=== PATIENT | male | born 1960 | race Caucasian/White ===

== ENCOUNTER 2022-07-17 12:23 | Outpatient (CLI) | payer OTHER | END 2022-07-17 12:24 | disposition home or self-care (01) | LOC: RAD 12:23 | PROVIDERS: ATTEND Internal Medicine | DX: Z02.71 Encounter for disability determination (principal); I51.7 Cardiomegaly | CPT/HCPCS: 71046 ==

== ENCOUNTER 2022-07-26 07:17 | Inpatient (IN) | payer SELFPAY ==
[2022-07-26 07:50] LABS: #Eosinphils 0.3 thou/uL (0.0-0.7); #Monocytes 0.4 thou/uL (0.11-0.59); #Neutrophils 4.2 thou/uL (1.40-6.50); %Basophils 0.4 % (0.0-1.0); %Eosinophils 4.7 % (0.0-10.0); %Lymphocytes 16.6 % (21.0-51.0); %Monocytes 6.9 % (0.0-10.0); %Neutrophils 71.4 % (42.0-75.0); Hemoglobin 15.9 g/dL (14.0-18.0); Mean Corpuscular HGB CONC 33.1 g/dL (32.0-36.0); Mean Corpuscular Hemoglobin 33.5 pg (27.0-31.0); Mean Platelet Volume 7.9 fL (7.4-10.4); Platelet Count 141 10x3/uL (130-400); RBC Distribution Width 12.7 % (11.5-14.5); Red Blood Cell (RBC) Count 4.75 mill/uL (4.70-6.10); White Blood Cell (WBC) Count 5.9 10x3/uL (4.8-10.8)
[2022-07-26 08:12] LABS: ALT (SGPT) 10 U/L (8-55); AST (SGOT) 18 U/L (5-34); Albumin 4.2 g/dL (3.4-4.8); Alkaline Phosphatase 83 U/L (40-110); Anion Gap 14 mmol/L (10-20); BUN (Urea Nitrogen) 15 mg/dL (8.4-25.7); Bilirubin, Total 0.8 mg/dL (0.2-1.2); Calc. Creatinine Clearance 0 mL/min (70-130); Calcium 9.2 mg/dL (7.8-10.44); Carbon Dioxide 25 mmol/L (23-31); Chloride 103 mmol/L (98-107); Estimated GFR 78; Globulin 3.9 g/dL (2.4-3.5); Glucose 107 mg/dL (80-115); Lipase 45 U/L (8-78); Potassium 4.4 mmol/L (3.5-5.1); Protein, Total 8.1 g/dL (5.8-8.1); Sodium 138 mmol/L (136-145)
[2022-07-26 08:38] LABS: CKMB 2.3 ng/mL (0-6.6)
[2022-07-26] MEDS ORDERED: Nitroglycerin 2% Ointment 1 INCH/1 GM Packet ONE (09:00)
[2022-07-26] MEDS ORDERED: Aspirin Chewable 81 MG TAB ONE (09:00)
[2022-07-26] MEDS ORDERED: Acetaminophen 325 MG TAB PO PRN (10:50)
[2022-07-26] MEDS ORDERED: Ipratropium/Albuterol 3 ML NEB NEB SCH (11:00)
[2022-07-26] MEDS ORDERED: Ipratropium/Albuterol 3 ML NEB ONE (11:18)
[2022-07-26 11:34] LABS: Magnesium 1.9 mg/dL (1.6-2.6)
[2022-07-26] MEDS ORDERED: hydrALAZINE 20 MG/ML VIAL SLOW IVP PRN (11:55)
[2022-07-26] MEDS ORDERED: Lisinopril 10 MG TAB PO SCH (12:00)
[2022-07-26] MEDS ORDERED: hydrALAZINE 20 MG/ML VIAL ONE (12:05)
[2022-07-26] MEDS ORDERED: Ondansetron PF 4 MG/2 ML Vial IVP PRN (12:30)
[2022-07-26] MEDS ORDERED: Ondansetron ODT 4 MG TAB PO PRN ×2 (12:31→14:41)
[2022-07-26 13:40] VITALS: BMI 29.0
[2022-07-26] MEDS ORDERED: Lorazepam 2 MG/ML VIAL IM PRN (14:41)
[2022-07-26] MEDS ORDERED: Lorazepam 1 MG TAB PO PRN (14:41)
[2022-07-26] MEDS ORDERED: Electrolyte Replacement Protocol 1 EACH FS SCH (14:45)
[2022-07-26 15:09] LABS: #Eosinphils 0.2 thou/uL (0.0-0.7); #Lymphocytes 1.1 thou/uL (1.20-3.40); #Monocytes 0.5 thou/uL (0.11-0.59); #Neutrophils 4.7 thou/uL (1.40-6.50); %Basophils 0.5 % (0.0-1.0); %Eosinophils 3.3 % (0.0-10.0); %Lymphocytes 16.9 % (21.0-51.0); %Monocytes 7.4 % (0.0-10.0); %Neutrophils 71.9 % (42.0-75.0); Hemoglobin 16.1 g/dL (14.0-18.0); Mean Corpuscular HGB CONC 33.8 g/dL (32.0-36.0); Mean Corpuscular Hemoglobin 34.5 pg (27.0-31.0); Mean Platelet Volume 7.3 fL (7.4-10.4); Platelet Count 143 10x3/uL (130-400); RBC Distribution Width 12.8 % (11.5-14.5); Red Blood Cell (RBC) Count 4.69 mill/uL (4.70-6.10); White Blood Cell (WBC) Count 6.5 10x3/uL (4.8-10.8)
[2022-07-26] MEDS ORDERED: Lorazepam 2 MG/ML VIAL SLOW IVP SCH (15:15)
[2022-07-26 15:33] LABS: ALT (SGPT) 12 U/L (8-55); AST (SGOT) 18 U/L (5-34); Albumin 4.2 g/dL (3.4-4.8); Alkaline Phosphatase 86 U/L (40-110); Anion Gap 13 mmol/L (10-20); BUN (Urea Nitrogen) 17 mg/dL (8.4-25.7); Bilirubin, Direct 0.2 mg/dL (0.1-0.3); Bilirubin, Total 0.7 mg/dL (0.2-1.2); Calc. Creatinine Clearance 88 mL/min (70-130); Calcium 9.7 mg/dL (7.8-10.44); Carbon Dioxide 26 mmol/L (23-31); Chloride 102 mmol/L (98-107); Estimated GFR 75; Glucose 99 mg/dL (80-115); Magnesium 1.9 mg/dL (1.6-2.6); Phosphorus 2.7 mg/dL (2.3-4.7); Potassium 4.3 mmol/L (3.5-5.1); Protein, Total 8.2 g/dL (5.8-8.1); Sodium 137 mmol/L (136-145)
[2022-07-26] MEDS ORDERED: Electrolyte Replacement Protocol FS PRN (15:45)
[2022-07-26] MEDS ORDERED: methylPREDNISolone Sod Succ 40 MG VIAL IVP SCH (16:00)
[2022-07-26] MEDS ORDERED: Losartan 25 MG TAB PO SCH (16:00)
[2022-07-26] MEDS ORDERED: Magnesium 2 GM/50 ML(in water) 2 GM in Premix Bag 1 BAG IVPB SCH (16:00)
[2022-07-26 16:57] LABS: Amphetamine Not Detected (NotDetected); Barbiturates Screen Not Detected (NotDetected); Benzodiazepine Screen Not Detected (NotDetected); Cocaine Metabolite Screen Not Detected (NotDetected); Methadone Not Detected (NotDetected); Methamphetamine Not Detected (NotDetected); Opiate Screen Not Detected (NotDetected); Oxycodone Screen Not Detected (NotDetected); Phencyclidine (PCP) Not Detected (NotDetected); THC/Cannabinoid Screen Detected (NotDetected); Tricyclic Screen Not Detected (NotDetected)
[2022-07-26] MEDS: Thiamine HCl 200 MG/2 ML VIAL SLOW IVP SCH (17:01)
[2022-07-26] MEDS: Lorazepam 1 MG TAB PO SCH ×2 (18:31→23:29)
[2022-07-26 18:53] LABS: Syphilis Antibody Nonreactive (Nonreactive); Syphilis Antibody Index 0.11 S/CO (<1.00 Non-Reactive)
[2022-07-27 05:09] LABS: #Lymphocytes 0.8 thou/uL (1.20-3.40); #Monocytes 0.3 thou/uL (0.11-0.59); #Neutrophils 4.2 thou/uL (1.40-6.50); %Basophils 0.2 % (0.0-1.0); %Eosinophils 0.1 % (0.0-10.0); %Lymphocytes 14.9 % (21.0-51.0); %Monocytes 4.9 % (0.0-10.0); Hemoglobin 15.7 g/dL (14.0-18.0); Mean Corpuscular HGB CONC 33.8 g/dL (32.0-36.0); Mean Corpuscular Hemoglobin 34.1 pg (27.0-31.0); Mean Platelet Volume 7.8 fL (7.4-10.4); Platelet Count 131 10x3/uL (130-400); RBC Distribution Width 12.5 % (11.5-14.5); White Blood Cell (WBC) Count 5.2 10x3/uL (4.8-10.8)
[2022-07-27 05:37] LABS: Anion Gap 15 mmol/L (10-20); BUN (Urea Nitrogen) 19 mg/dL (8.4-25.7); Calc. Creatinine Clearance 98 mL/min (70-130); Calcium 9.2 mg/dL (7.8-10.44); Carbon Dioxide 24 mmol/L (23-31); Chloride 103 mmol/L (98-107); Cholesterol 197 mg/dl (< 200 Desired); Estimated GFR 85; Glucose 121 mg/dL (80-115); HDL Cholesterol 33 mg/dL (>60 Neg Risk); LDL Cholesterol, Calculated 146 mg/dL; Magnesium 2.3 mg/dL (1.6-2.6); Potassium 4.6 mmol/L (3.5-5.1); Sodium 137 mmol/L (136-145); Triglycerides 92 mg/dL (Less than 150)
[2022-07-27] MEDS: Lorazepam 1 MG TAB PO SCH ×5 (05:46→23:22)
[2022-07-27] MEDS ORDERED: Lisinopril 10 MG TAB PO SCH (09:00)
[2022-07-27] MEDS: Aspirin Chewable 81 MG TAB PO SCH (09:35)
[2022-07-27] MEDS: Losartan 25 MG TAB PO SCH (09:36)
[2022-07-27] MEDS: Folic Acid 1 MG TAB PO SCH (09:36)
[2022-07-27] MEDS: Multivit, Therapeutic 1 TAB PO SCH (09:37)
[2022-07-27] MEDS ORDERED: Lorazepam 1 MG TAB PO PRN (14:41)
[2022-07-27 15:16] LABS: CKMB 2.5 ng/mL (0-6.6)
[2022-07-27] MEDS ORDERED: Iopamidol-370 76% 500 ML 1 ML ONE (15:26)
[2022-07-27] MEDS: hydrALAZINE 25 MG TAB PO SCH ×2 (17:18→19:57)
[2022-07-27] MEDS: Thiamine HCl 200 MG/2 ML VIAL SLOW IVP SCH (17:20)
[2022-07-27] MEDS: Ipratropium/Albuterol 3 ML NEB NEB PRN (18:46)
[2022-07-27] MEDS: Atorvastatin Calcium 20 MG TAB PO SCH (19:57)
[2022-07-28 05:12] LABS: #Eosinphils 0.2 thou/uL (0.0-0.7); #Lymphocytes 1.5 thou/uL (1.20-3.40); #Monocytes 0.5 thou/uL (0.11-0.59); #Neutrophils 4.4 thou/uL (1.40-6.50); %Basophils 0.2 % (0.0-1.0); %Eosinophils 3.3 % (0.0-10.0); %Lymphocytes 22.7 % (21.0-51.0); %Monocytes 7.5 % (0.0-10.0); %Neutrophils 66.3 % (42.0-75.0); Hemoglobin 15.6 g/dL (14.0-18.0); Mean Corpuscular HGB CONC 33.2 g/dL (32.0-36.0); Mean Corpuscular Hemoglobin 33.6 pg (27.0-31.0); Mean Platelet Volume 7.9 fL (7.4-10.4); Platelet Count 135 10x3/uL (130-400); RBC Distribution Width 12.8 % (11.5-14.5); Red Blood Cell (RBC) Count 4.64 mill/uL (4.70-6.10); White Blood Cell (WBC) Count 6.7 10x3/uL (4.8-10.8)
[2022-07-28 05:29] LABS: Anion Gap 14 mmol/L (10-20); BUN (Urea Nitrogen) 23 mg/dL (8.4-25.7); Calc. Creatinine Clearance 92 mL/min (70-130); Calcium 9.1 mg/dL (7.8-10.44); Carbon Dioxide 26 mmol/L (23-31); Chloride 103 mmol/L (98-107); Estimated GFR 79; Glucose 100 mg/dL (80-115); Sodium 139 mmol/L (136-145)
[2022-07-28] MEDS: Lorazepam 1 MG TAB PO SCH ×3 (05:47→18:38)
[2022-07-28] MEDS: hydrALAZINE 25 MG TAB PO SCH ×3 (09:12→20:36)
[2022-07-28] MEDS: Folic Acid 1 MG TAB PO SCH (09:12)
[2022-07-28] MEDS: Aspirin Chewable 81 MG TAB PO SCH (09:12)
[2022-07-28] MEDS: Multivit, Therapeutic 1 TAB PO SCH (09:13)
[2022-07-28] MEDS: Losartan 25 MG TAB PO SCH (09:13)
[2022-07-28] MEDS ORDERED: methylPREDNISolone Sod Succ 40 MG VIAL IVP SCH (13:00)
[2022-07-28] MEDS ORDERED: Lorazepam 1 MG TAB PO PRN (14:41)
[2022-07-28] MEDS ORDERED: Benzonatate 100 MG CAP PO PRN (15:32)
[2022-07-28] MEDS: Thiamine HCl 200 MG/2 ML VIAL SLOW IVP SCH (16:20)
[2022-07-28] MEDS: Ipratropium/Albuterol 3 ML NEB NEB PRN (20:10)
[2022-07-28] MEDS: Atorvastatin Calcium 20 MG TAB PO SCH (20:35)
[2022-07-28] MEDS: Doxycycline 100 MG CAP PO SCH (20:35)
[2022-07-28] MEDS ORDERED: Lorazepam 0.5 MG TAB PO SCH (23:59)
[2022-07-29 04:11] VITALS: TEMP 97
[2022-07-29 05:11] LABS: #Lymphocytes 1.6 thou/uL (1.20-3.40); #Monocytes 0.5 thou/uL (0.11-0.59); #Neutrophils 5.3 thou/uL (1.40-6.50); %Basophils 0.3 % (0.0-1.0); %Eosinophils 0.5 % (0.0-10.0); %Lymphocytes 21.6 % (21.0-51.0); %Monocytes 6.7 % (0.0-10.0); Hemoglobin 16.3 g/dL (14.0-18.0); Mean Corpuscular HGB CONC 33.1 g/dL (32.0-36.0); Mean Corpuscular Hemoglobin 33.8 pg (27.0-31.0); Platelet Count 148 10x3/uL (130-400); RBC Distribution Width 12.9 % (11.5-14.5); Red Blood Cell (RBC) Count 4.83 mill/uL (4.70-6.10); White Blood Cell (WBC) Count 7.5 10x3/uL (4.8-10.8)
[2022-07-29 05:34] LABS: Anion Gap 16 mmol/L (10-20); BUN (Urea Nitrogen) 23 mg/dL (8.4-25.7); Calc. Creatinine Clearance 101 mL/min (70-130); Calcium 9.4 mg/dL (7.8-10.44); Carbon Dioxide 19 mmol/L (23-31); Chloride 104 mmol/L (98-107); Estimated GFR 88; Glucose 106 mg/dL (80-115); Potassium 4.3 mmol/L (3.5-5.1); Sodium 135 mmol/L (136-145)
[2022-07-29] MEDS: Ipratropium/Albuterol 3 ML NEB NEB PRN (07:17)
[2022-07-29 07:38] VITALS: BP 158/95
[2022-07-29] MEDS: hydrALAZINE 25 MG TAB PO SCH (08:51)
[2022-07-29] MEDS: Aspirin Chewable 81 MG TAB PO SCH (08:51)
[2022-07-29] MEDS: Doxycycline 100 MG CAP PO SCH (08:51)
[2022-07-29] MEDS: Folic Acid 1 MG TAB PO SCH (08:51)
[2022-07-29] MEDS: Losartan 25 MG TAB PO SCH (08:51)
[2022-07-29] MEDS: Multivit, Therapeutic 1 TAB PO SCH (08:52)
[2022-07-29] MEDS ORDERED: Thiamine 100 MG TAB PO SCH (09:00)
[2022-07-29] MEDS ORDERED: Lorazepam 0.5 MG TAB PO PRN (14:41)
== END 2022-07-29 13:20 | disposition home or self-care (01) | DRG 919 ==
LOC: ERS 07:17 → ERHOLD 10:28 → 2SW 12:21 → OBSVTOIN 07-27 16:09
PROVIDERS: ADMIT Internal Medicine; ATTEND Internal Medicine
DX: T81.30XA Disruption of wound, unspecified, initial encounter (principal); I21.4 Non-ST elevation (NSTEMI) myocardial infarction; J96.00 Acute respiratory failure, unspecified whether with hypoxia or hypercapnia; S22.20XA Unspecified fracture of sternum, initial encounter for closed fracture; F12.10 Cannabis abuse, uncomplicated; I25.10 Atherosclerotic heart disease of native coronary artery without angina pectoris; E78.5 Hyperlipidemia, unspecified; Z90.49 Acquired absence of other specified parts of digestive tract; I25.2 Old myocardial infarction; Z95.1 Presence of aortocoronary bypass graft; Z91.14 Patient's other noncompliance with medication regimen; Z88.0 Allergy status to penicillin
CPT/HCPCS: 36415; 36416; 71046; 71260; 80048; 80053; 80061; 80306; 82248; 82553; 83690; 83735; 83880; 84100; 84443; 84484; 85025; 86780; 93005; 93306; 94640; 94760; 96372; 96374; 96375; G0378; J0360; J1650; J2060; J2405; J2920; J3411; J3475; J7620; Q9967; U0003; U0005

== ENCOUNTER 2022-08-18 08:19 | Emergency (ER) | payer SELFPAY ==
[2022-08-18 09:05] LABS: #Eosinphils 0.4 thou/uL (0.0-0.7); #Lymphocytes 1.4 thou/uL (1.20-3.40); #Monocytes 0.5 thou/uL (0.11-0.59); #Neutrophils 3.7 thou/uL (1.40-6.50); %Basophils 0.7 % (0.0-1.0); %Eosinophils 6.1 % (0.0-10.0); %Lymphocytes 22.7 % (21.0-51.0); %Monocytes 8.9 % (0.0-10.0); %Neutrophils 61.6 % (42.0-75.0); Hemoglobin 15.1 g/dL (14.0-18.0); Mean Corpuscular HGB CONC 34.2 g/dL (32.0-36.0); Mean Corpuscular Hemoglobin 35.3 pg (27.0-31.0); Mean Platelet Volume 7.7 fL (7.4-10.4); Platelet Count 135 10x3/uL (130-400); RBC Distribution Width 12.9 % (11.5-14.5); Red Blood Cell (RBC) Count 4.28 mill/uL (4.70-6.10); White Blood Cell (WBC) Count 6.1 10x3/uL (4.8-10.8)
[2022-08-18 09:27] LABS: ALT (SGPT) 22 U/L (8-55); AST (SGOT) 20 U/L (5-34); Alkaline Phosphatase 80 U/L (40-110); Anion Gap 11 mmol/L (10-20); BUN (Urea Nitrogen) 16 mg/dL (8.4-25.7); Calc. Creatinine Clearance 0 mL/min (70-130); Calcium 9.5 mg/dL (7.8-10.44); Carbon Dioxide 32 mmol/L (23-31); Chloride 102 mmol/L (98-107); Estimated GFR 77; Globulin 3.8 g/dL (2.4-3.5); Glucose 111 mg/dL (80-115); Potassium 4.8 mmol/L (3.5-5.1); Protein, Total 7.8 g/dL (5.8-8.1); Sodium 140 mmol/L (136-145)
[2022-08-18 09:48] LABS: CKMB 3.3 ng/mL (0-6.6)
[2022-08-18 12:41] LABS: Troponin I 0.034 ng/mL (< 0.028)
== END 2022-08-18 13:22 | disposition home or self-care (01) ==
LOC: ERS 08:19
DX: R07.9 Chest pain, unspecified (principal); T81.31XA Disruption of external operation (surgical) wound, not elsewhere classified, initial encounter; I25.10 Atherosclerotic heart disease of native coronary artery without angina pectoris; I10 Essential (primary) hypertension; Z79.899 Other long term (current) drug therapy
CPT/HCPCS: 36415; 71045; 80053; 82553; 84484; 85025; 93005